=== PATIENT | female | born 1945 | race Caucasian/White ===

== ENCOUNTER 2017-01-05 07:22 | Day surgery (SDC) | payer MEDICARE ==
[~2017-01-05] VITALS: Ht 170.2 cm; Wt 104.3 kg
[2017-01-05] MEDS ORDERED: LIPITOR80 MG GT (07:37)
[2017-01-05] MEDS ORDERED: COQ-1030 MG PO (07:38)
[2017-01-05] MEDS ORDERED: KLOR-CON20 MEQ PO (07:38)
[2017-01-05] MEDS ORDERED: ASPIRIN81 MG PO (07:38)
[2017-01-05] MEDS ORDERED: VITAMIN D1000 UNIT PO (07:38)
[2017-01-05] MEDS ORDERED: BENICAR20 MG (07:40)
--- NOTE | 2017-01-05 09:11 | NUR ---
01/05/17 0911 Geeta Johnston 0903- at bedside.
--- NOTE | 2017-01-08 08:06 | OR ---
[facility] [address] [place], [place] [address] Signed DATE OF OPERATION: 01/05/2017 SURGEON: Nikko Mendez MD PREOPERATIVE DIAGNOSIS: History of adenomatous polyp of rectum, 2014. POSTOPERATIVE DIAGNOSIS: Two small polyps, sigmoid and left colon (excised). PROCEDURE: Total colonoscopy to cecum with cold morcellation polypectomy x2. ANESTHESIA: Intravenous sedation, fentanyl 100 mcg, and versed 6 mg. INDICATION: This is a 71-year-old white woman who is a patient of Dr. Johnson and underwent colonoscopy by vt in 2014, at which time she was found to have a rectal adenoma. Surveillance colonoscopy was recommended. The risks of bleeding, infection, and perforation related to colonoscopy were reviewed in detail. She understands and wished to proceed. FINDINGS: Prep was good. Complete colonoscopy was undertaken to the cecum. There were 2 small polyps with benign features, but probably adenomatous. Both were excised completely. There was mild inflammation of rectum for which biopsies obtained, but probably no pathologic etiology to the inflammation. DESCRIPTION OF PROCEDURE: The patient was brought to the endoscopy suite and placed in lateral decubitus position, given intravenous sedation to the point of slurred speech and nystagmus. Digital rectal examination was normal. An Olympus video colonoscope was passed in the rectum and manipulated throughout the colon, ultimately intubating the cecum itself. The scope was withdrawn from that point and examination throughout was undertaken. In the proximal descending colon, relatively near the splenic flexure, a small polyp was noted. Narrow band imaging confirmed the surface to be likely an adenoma. Complete excision was undertaken with cold morcellation technique. Polyp was about 4 mm in size. Further withdrawal of scope showed another Electronically Signed By: NIKKO MENDEZ MD 01/08/17 0806 PATIENT NAME: RON KIM OPERATIVE REPORT DATE OF : 45 PHYSICIAN: NIKKO MENDEZ MD REPORT #: [id number] REPORT IS CONFIDENTIAL AND NOT TO BE RELEASED WITHOUT AUTHORIZATION [facility] [address] [place] [id number] Signed similar such lesion in the sigmoid. It too was similarly excised. The scope was withdrawn to the rectum. Retroflexed view was normal. The patient was then taken to recovery room in good condition having suffered no complication. CONCLUDING DIAGNOSIS: Polyps x2. PLAN: Recommend repeat colonoscopy in 3 years if adenomatous histology is noted, if hyperplastic 7 years. MD LUZMA Greene/MODL /[id number] cc: Bhargav Johnson MD Electronically Signed By: NIKKO MENDEZ MD 01/08/17 0806 PATIENT NAME: RON KIM OPERATIVE REPORT DATE OF : 45 PHYSICIAN: NIKKO MENDEZ MD REPORT #: [id number] REPORT IS CONFIDENTIAL AND NOT TO BE RELEASED WITHOUT AUTHORIZATION
== END 2017-01-05 09:40 | disposition home or self-care (01) ==
LOC: DS 07:22 → OPS 07:22 → DS 08:30 → OPS 09:40
PROVIDERS: Surgery
PROC: 0DBL8ZX Excision of Transverse Colon, Via Natural or Artificial Opening Endoscopic, Diagnostic (ICD-10-PCS; 2017-01-05)
PROC: 0DBN8ZX Excision of Sigmoid Colon, Via Natural or Artificial Opening Endoscopic, Diagnostic (ICD-10-PCS; 2017-01-05)
PROC: 0DBP8ZX Excision of Rectum, Via Natural or Artificial Opening Endoscopic, Diagnostic (ICD-10-PCS; 2017-01-05)
PROC: 0DBG8ZX Excision of Left Large Intestine, Via Natural or Artificial Opening Endoscopic, Diagnostic (ICD-10-PCS; principal; 2017-01-05 08:30)
DX: Z12.11 Encounter for screening for malignant neoplasm of colon (principal); D12.3 Benign neoplasm of transverse colon; D12.5 Benign neoplasm of sigmoid colon; D12.4 Benign neoplasm of descending colon; E78.00 Pure hypercholesterolemia, unspecified; E66.9 Obesity, unspecified; I10 Essential (primary) hypertension; M19.90 Unspecified osteoarthritis, unspecified site; Z86.010 Personal history of colon polyps; Z80.0 Family history of malignant neoplasm of digestive organs; Z88.8 Allergy status to other drugs, medicaments and biological substances; Z88.0 Allergy status to penicillin; Z98.51 Tubal ligation status; Z98.890 Other specified postprocedural states; Z79.899 Other long term (current) drug therapy
CPT/HCPCS: 88305; 99152; 99153; J2250; J3010; J7120

== ENCOUNTER 2021-12-02 07:48 | Day surgery (SDC) | payer MEDICARE ==
[~2021-12-02] VITALS: Ht 170.2 cm; Wt 99.5 kg
[~2021-12-02 07:48] MED LIST: ACYCLOVIR200 MG PO; ASPIRIN81 MG PO; BENICAR20 MG; COQ-1030 MG PO; FLUTICASONE PRO16 GM NAS; KLOR-CON20 MEQ PO; LIPITOR80 MG GT; METAMUCIL0.4 GM PO; NYSTATIN15 G1 TOP; OMEPRAZOLE20 MG PO; VITAMIN D1000 UNIT PO
[2021-12-02] MEDS ORDERED: ZINC30 MG PO (08:13)
[2021-12-02] MEDS ORDERED: MAGNESIUM30 MG PO (08:14)
--- NOTE | 2021-12-02 10:38 | NUR ---
12/02/21 1038 Joe,Tamiko Ham 1030: DISCHARGE INSTRUCTIONS GIVEN TO PATIENT. BP LOW. ADDITIONAL BAG OF LR HUNG. 1035: PATIENT REPOSITIONED SELF TO BACK. BP RECHECKED.
--- NOTE | 2021-12-06 19:03 | OR ---
[facility] [address] [place], [place] [address] Signed DATE OF OPERATION: 12/02/2021 SURGEON: Nikko Mendez MD PREOPERATIVE DIAGNOSIS: History of tubular adenomas in 2017. POSTOPERATIVE DIAGNOSIS: Single polyp right colon. PROCEDURE: Total colonoscopy to cecum with cold morcellation polypectomy x1. ANESTHESIA: Intravenous sedation fentanyl 150 mcg and Versed 5 mg. INDICATION: This 76-year-old white woman is a patient of GURINDER Potter. She underwent colonoscopy in 2017, at which time she had three tubular adenomas excised. She has no rectal bleeding, though occasionally does have constipation. She has family history of colon cancer in her mother. She is admitted at this time to undergo colonoscopy, understands the risks of bleeding, infection, and perforation. FINDINGS: The prep was good. Complete colonoscopy was undertaken to the cecum without question. She had a small adenoma in the mid ascending colon which was excised with cold morcellation technique. The remaining colon was normal. PROCEDURE IN DETAIL: The patient was brought to the endoscopy suite and placed in lateral decubitus position given intravenous sedation to the point of slurred speech and nystagmus. Digital rectal examination was normal. An Olympus video colonoscope was passed in the rectum and manipulated throughout the colon ultimately intubating the cecum itself. The ileocecal valve and appendiceal orifice were normal. The scope was withdrawn and in the mid ascending colon, a small adenoma was noted, this was excised with cold morcellation technique. The scope was further withdrawn. Remaining colon was normal. Retroflexed view was normal as well. The scope was removed. The patient was taken to the recovery room in good condition. CONCLUSION DIAGNOSIS: Electronically Signed By: NIKKO MENDEZ MD 12/06/21 190 PATIENT NAME: RON KIM OPERATIVE REPORT DATE OF : 45 REPORT #: [id number] PHYSICIAN: NIKKO MENDEZ MD PCP: EMILY ROCHE REPORT IS CONFIDENTIAL AND NOT TO BE RELEASED WITHOUT AUTHORIZATION [facility] [address] [place], [place] [address] Signed Single polyp, right colon, excised. PLAN: Recommend repeat colonoscopy in 5 years, sooner if clinically indicated. She will return to the ongoing care of Judy Roche. MD LUZMA Greene/MODL /[id number] cc: GURINDER Potter Copies: ~ Electronically Signed By: NIKKO MENDEZ MD 12/06/21 1903 PATIENT NAME: RON KIM OPERATIVE REPORT DATE OF : 45 REPORT #: [id number] PHYSICIAN: NIKKO MENDEZ MD PCP: EMILY ROCHE REPORT IS CONFIDENTIAL AND NOT TO BE RELEASED WITHOUT AUTHORIZATION
--- NOTE | 2021-12-08 09:08 | PATH ---
[facility] [address] [place], [place] [address] Signed SPECIMEN(S): A ASCENDING/RIGHT COLON POLYP SPECIMEN SOURCE: A. ASCENDING/RIGHT COLON POLYP CLINICAL HISTORY: Colonoscopy. History of polyps. Post: Colon polyp x 1. FINAL PATHOLOGIC DIAGNOSIS: Colon, ascending/right, polypectomy: - Tubular adenoma. - There is no evidence of high-grade dysplasia or malignancy. TWK:kofi:C2NR MICROSCOPIC EXAMINATION: Histologic sections of all submitted blocks are examined by light microscopy. These findings, together with the gross examination, support the pathologic diagnosis. GROSS DESCRIPTION: The specimen, labeled "LK, 1," and designated on the requisition "ascending/right polypectomy," is received in formalin and consists of one fragment of pink-lambert tissue (0.2 cm in greatest dimension). The specimen is submitted entirely in cassette (A1). AC (under the direct supervision of a pathologist) The Gross Description was prepared using a voice recognition system. The report was reviewed for accuracy; however, sound-alike word errors, addition and/or deletions may occur. If there is any question about this report, please contact Client Services. PERFORMING LABORATORY: The technical component was performed by [facility] [facility], [address] [place] [id number] (CLIA# [id number]). The professional interpretation was performed by [facility], [facility], [address] [place] [address] (CLIA#: [id number]). Diagnostician: Shahab Martinez MD Pathologist Electronically Signed 12/08/2021 PATIENT NAME: RON KIM PATHOLOGY DATE OF : 45 REPORT #: [id number] PHYSICIAN: BEVERLY PANTOJA PCP: EMILY SIDDIQI REPORT IS CONFIDENTIAL AND NOT TO BE RELEASED WITHOUT AUTHORIZATION [address] [address] Signed Copies: ~ PATIENT NAME: RON KIM PATHOLOGY DATE OF : 45 REPORT #: [id number] PHYSICIAN: BEVERLY PATHOLOGY PCP: EMILY SIDDIQI REPORT IS CONFIDENTIAL AND NOT TO BE RELEASED WITHOUT AUTHORIZATION
== END 2021-12-02 10:58 | disposition home or self-care (01) ==
LOC: OPS 07:48 → DS 07:54 → OPS 09:30
PROVIDERS: ATTEND Surgery
PROC: 0DBK8ZZ Excision of Ascending Colon, Via Natural or Artificial Opening Endoscopic (ICD-10-PCS; principal; 2021-12-02 09:30)
DX: Z12.11 Encounter for screening for malignant neoplasm of colon (principal); D12.2 Benign neoplasm of ascending colon; I10 Essential (primary) hypertension; K59.09 Other constipation; Z86.16 Personal history of COVID-19; Z80.0 Family history of malignant neoplasm of digestive organs
CPT/HCPCS: 88305; J2250; J3010; J7121